=== PATIENT | male | born 1945 | race Caucasian/White ===

== ENCOUNTER 2021-04-12 14:10 | Emergency (ER) | payer OTHER ==
[~2021-04-12] VITALS: Ht 177.8 cm; Wt 81.7 kg
[2021-04-12] MEDS ORDERED: SIMVASTATIN80 MG PO (14:51)
[2021-04-12] MEDS ORDERED: BAYER CHEWABLE81 MG PO (14:52)
[2021-04-12] MEDS ORDERED: PREDNISOLONE ACE5 ML LT. EYE (14:52)
[2021-04-12] MEDS ORDERED: FISH OIL 1,0001 EAC9 PO (14:52)
[2021-04-12 15:26] LABS: ABSOLUTE NEUTROPHILS 4.6 thou/uL (1.4-8.2); BASOPHILS 0.7 % (0.0-2.0); HEMATOCRIT 41.5 % (42.0-52.0); HEMOGLOBIN 13.7 gm/dL (14.0-18.0); LYMPHOCYTES 18.1 % (24.0-44.0); MCV 88.1 fL (80.0-100.0); MONOCYTES 8.7 % (1.0-8.0); PLATELET COUNT 182 thou/uL (150-400); POLYS 70.5 % (36.0-66.0); RBC 4.71 mil/uL (4.50-6.00); RDW 13.6 % (10.5-14.5); WBC 6.5 thou/uL (4.0-11.0)
[2021-04-12 15:32] LABS: CREATININE 1.1 mg/dL (0.7-1.3); POTASSIUM 3.9 mmol/L (3.5-5.1)
[2021-04-12 15:38] LABS: ALBUMIN 3.7 g/dL (3.4-5.0); TOTAL PROTEIN 7.3 g/dL (6.4-8.2)
[2021-04-12] MEDS ORDERED: CEFPODOXIME PR200 M1 PO (18:50)
[2021-04-12 18:52] VITALS: BP 128/69
[2021-04-12 18:58] LABS: URINE BLOOD 3+ (Negative); URINE CLARITY CLEAR; URINE COLOR YELLOW; URINE GLUCOSE-RANDOM* NEGATIVE (Negative); URINE KETONES 1+ (Negative); URINE LEUKOCYTES-REFLEX NEGATIVE (Negative); URINE NITRITE-REFLEX NEGATIVE (Negative); URINE PROTEIN (DIPSTICK) TRACE (Negative); URINE SPECIFIC GRAVITY 1.025 (1.005-1.035); URINE UROBILINOGEN 0.2 E.U./dl (0.2-1.0)
[2021-04-12 19:19] LABS: CASTS None Seen /LPF (None Seen); SQUAMOUS 0-3 Few /LPF (0-3)
[2021-04-12 19:20] LABS: BACTERIA-REFLEX 1-9 Few /HPF (None Seen); CRYSTALS None Seen /LPF (None Seen); URINE RBC 3-10 Few /HPF (NONE SEEN); URINE WBC-REFLEX 0-5 Rare /HPF (0-5)
[2021-04-12 19:21] LABS: URINE BILIRUBIN 1+ (Negative)
== END 2021-04-12 18:52 | disposition home or self-care (01) ==
LOC: ER 14:10
PROVIDERS: Emergency Medicine
DX: N39.0 Urinary tract infection, site not specified (principal); R33.9 Retention of urine, unspecified; N21.0 Calculus in bladder; Z79.899 Other long term (current) drug therapy; Z91.010 Allergy to peanuts